=== PATIENT | female | born 1965 | race Caucasian/White ===

== ENCOUNTER 2022-03-26 08:16 | Outpatient (CLI) | payer BC, SELFPAY ==
[2022-03-26 08:35] LABS: Basophils Absolute Auto 0.02 K/uL (0.00-0.30); Basophils Percent Auto 0.4 % (0.0-3.0); Eosinophils Absolute Auto 0.14 K/uL (0.00-0.50); Eosinophils Percent Auto 3.1 % (0.0-7.0); Hematocrit 39.1 % (33.0-51.0); Hemoglobin* 13.1 gm/dL (12.0-16.0); Lymphocytes Absolute Auto 1.65 K/uL (0.90-2.90); Lymphocytes Percent Auto 36.3 % (20-44); Mean Corpuscular HGB Conc 34 gm/dL (32-36); Mean Corpuscular Hemoglobin 32 pg (26-34); Mean Corpuscular Volume 95 fL (80-100); Monocytes Percent Auto 8.8 % (0.0-11.0); Neutrophils Absolute Auto 2.34 K/uL (1.7-7.0); Neutrophils Percent Auto 51.4 % (42.0-72.0); Platelet Count* 236 K/uL (140-440); RDW Coefficient of Variation % 12.8 % (11.5-15.5); Red Blood Count 4.13 m/uL (4.00-5.20); White Blood Count* 4.55 K/uL (4.50-11.00)
[2022-03-26 08:53] LABS: Slide Review Reflex No
[2022-03-26 09:27] LABS: Albumin* 4.1 g/dL (3.3-5.0); Chloride* 107 mmol/L (96-114); Sodium* 140 mmol/L (135-149)
[2022-03-26 09:30] LABS: Alkaline Phosphatase* 72 U/L (40-150); Aspartate Amino Transferase* 24 U/L (12-35); Bilirubin Total* 0.5 mg/dL (0.1-1.5); Blood Urea Nitrogen* 10 mg/dL (7-30); Carbon Dioxide* 26 mmol/L (20-32); Creatinine* 0.5 mg/dL (0.5-1.5); Estimated Glomerular Filt Rate 110.01; Total Protein* 6.3 g/dL (6.0-8.3)
[2022-03-26 09:31] LABS: Alanine Aminotransferase* 20 U/L (4-35); Calcium* 9.2 mg/dL (8.4-10.6); Glucose* 103 mg/dL (60-115)
== END 2022-03-26 08:17 | disposition home or self-care (01) ==
PROVIDERS: PCP Family Medicine; Visit Provider Internal Medicine Hematology & Oncology
DX: C50.412 Malignant neoplasm of upper-outer quadrant of left female breast (principal); R91.8 Other nonspecific abnormal finding of lung field; N20.0 Calculus of kidney; M79.3 Panniculitis, unspecified
CPT/HCPCS: 36415; 71260; 74177; 80053; 85025; Q9967

== ENCOUNTER 2022-08-27 08:03 | Outpatient (CLI) | payer BC, SELFPAY ==
--- NOTE | 2022-08-27 09:00 | CRLHL7_ITS ---
For Patients: As a result of the Century Cures Act, medical imaging exams and procedure reports are released immediately into your electronic medical record. You may view this report before your referring provider. If you have questions, please contact your health care provider. Indication: F/U LEFT BREAST CANCER. LUMP FELT IN LEFT Supra clavicle AND ARM PIT AREA ON PHYSICAL EXAM. Technique: Postcontrast CT chest, abdomen and pelvis. 83 cc Isovue 370 intravenous contrast. Oral water. Please note that all CT scans at this facility use dose modulation, iterative reconstruction, and/or weight-based dosing when appropriate to reduce radiation dose to as low as reasonably achievable. Comparison: 03/26/2022 Findings: In the chest, postoperative changes of left mastectomy and left axillary lymph node dissection noted. There is a stable subcentimeter left axillary lymph node. No suspicious left axillary lymph nodes. No adenopathy at the thoracic inlet. Stable appearance of the thyroid. Mild residual thymic tissue. No mediastinal and hilar adenopathy. Stable 5 millimeter nodule left lower lobe, 3/70. Stable right middle lobe nodule measuring 5 millimeters, 3/60. Dependent areas of scarring. No pleural effusion. No pneumothorax. No fracture. In the abdomen, there is no intrahepatic mass. The gallbladder is normal. No calcified gallstones. No biliary obstruction. Normal spleen. Normal pancreas. Adrenal glands normal. Stable nonobstructing stone within the left kidney measuring 1 cm. Stable small renal cysts. No hydronephrosis. Ureters are normal. Stable mild chronic mesenteric panniculitis. No suspicious intra-abdominal lymph nodes. In the pelvis, the bladder is normal. Normal adnexa and uterus. No bowel obstruction. Appendix normal. No pelvic or inguinal adenopathy. Degenerative changes. Impression: Stable exam. No evidence of pathology within the left axilla or left supraclavicular regions. Stable left lower lobe nodule and right middle lobe nodule measuring 5 millimeters each. No new pulmonary nodule. Stable nonobstructing stone left kidney. Please note that all CT scans at this facility use dose modulation, iterative reconstruction, and/or weight-based dosing when appropriate to reduce radiation dose to as low as reasonably achievable. Dictated by Sinan Johnson MD @ 08/27/2022 12:02:31 PM (Electronically Signed)
[2022-08-30 16:44] LABS: 25-Hydroxyvitamin D2 <1.0 ng/mL; 25-Hydroxyvitamin D2,D3 Total 43.2 ng/mL (30.0-80.0); 25-Hydroxyvitamin D3 43.2 ng/mL
== END 2022-08-27 08:04 | disposition home or self-care (01) ==
LOC: CT 08:04
PROVIDERS: PCP Family Medicine; Visit Provider Internal Medicine Hematology & Oncology
DX: C50.412 Malignant neoplasm of upper-outer quadrant of left female breast (principal)
CPT/HCPCS: 36415; 71260; 74177; 82306; Q9967

== ENCOUNTER 2023-07-31 08:40 | Outpatient (CLI) | payer BC, SELFPAY ==
--- NOTE | 2023-07-31 09:00 | CRLHL7_ITS ---
For Patients: As a result of the Century Cures Act, medical imaging exams and procedure reports are released immediately into your electronic medical record. You may view this report before your referring provider. If you have questions, please contact your health care provider. Indication: Malignant Neoplasm Breast Upper Outer Quadrant Technique: CT Chest/Abd/Pelvis W ISOVUE 370 Please note that all CT scans at this facility use dose modulation, iterative reconstruction, and/or weight-based dosing when appropriate to reduce radiation dose to as low as reasonably achievable. Comparison: 08/27/2022 Findings: In the chest, there is a stable subpleural nodule within the right middle lobe measuring 4.4 millimeters, 60. Additional stable nodule within the periphery of the left lower lobe measuring 4 millimeters, . Mild dependent scarring in both lower lobes. Calcified granuloma in the anterior left upper lobe. Visualized thyroid is normal. No adenopathy in the mediastinum or josé miguel. Similar small left axillary lymph nodes. Postop changes of left mastectomy. Right breast tissue appears normal. No fracture. In the abdomen, there is no intrahepatic mass. The gallbladder is normal. Normal adrenal glands. Simple cysts involving the kidneys. Stable ovoid calcification left kidney measuring 9.5 millimeters. Pancreas normal. Spleen is unremarkable. No retroperitoneal adenopathy. A few scattered subcentimeter lymph nodes are noted in the retroperitoneum. No mesenteric adenopathy. In the pelvis, the bladder is within normal limits. No large uterine fibroid. No adnexal mass. The appendix is normal. No bowel obstruction, free air, free fluid or abscess. Normal ureters. Degenerative facet arthropathy lower lumbar spine with grade 1 degenerative anterolisthesis of L4 on L5. No fracture. Anterior spurring L5-S1. Impression: No significant change since the prior study. Stable small bilateral pulmonary nodules and stable subcentimeter retroperitoneal lymph nodes. No suspicious findings. Please note that all CT scans at this facility use dose modulation, iterative reconstruction, and/or weight-based dosing when appropriate to reduce radiation dose to as low as reasonably achievable. Dictated by Sinan Johnson MD @ 08/04/2023 3:37:32 PM (Electronically Signed)
== END 2023-07-31 08:41 | disposition home or self-care (01) ==
LOC: CT 08:44
PROVIDERS: PCP Family Medicine; Visit Provider Nurse Practitioner Family
DX: C50.419 Malignant neoplasm of upper-outer quadrant of unspecified female breast (principal)
CPT/HCPCS: 71260; 74177; Q9967

== ENCOUNTER 2024-08-16 07:45 | Outpatient (CLI) | payer OTHER, SELFPAY ==
--- NOTE | 2024-08-16 08:00 | CRLHL7_ITS ---
For Patients: As a result of the Century Cures Act, medical imaging exams and procedure reports are released immediately into your electronic medical record. You may view this report before your referring provider. If you have questions, please contact your health care provider. INDICATION: MALIGNANT NEOPLASM OF BREAST TECHNIQUE: CT chest, abdomen and pelvis acquired 83 milliliters Isovue 370 contrast. COMPARISON: July 2023 and 2021 FINDINGS: CHEST: Lungs and Airways: Dependent subsegmental atelectasis. Stable left lower lobe and middle lobe subpleural indeterminate pulmonary nodules measuring 4 millimeters. No new suspicious pulmonary nodules. No mass or consolidation. No endoluminal lesion. Heart and Mediastinum: Tiny right thyroid nodule. No axillary or supraclavicular lymphadenopathy. No mediastinal, hilar or retrocrural lymphadenopathy. Normal heart size. Normal caliber aorta. Pleura: The pleural spaces are normal. ABDOMEN: Liver: Normal enhancement. No focal suspicious hepatic lesions. Gallbladder and biliary: Normal gallbladder without radiopaque stone. Normal caliber bile ducts. Spleen: Normal size and enhancement. Pancreas: Normal enhancement without peripancreatic inflammatory changes or ductal dilatation. Adrenal glands: Normal adrenal glands. Kidneys and ureters: Normal enhancement. Nonobstructing left-sided renal stone. Renal cysts. Subcentimeter hypodensities are too small to characterize however statistically represent cysts. GI tract: The stomach is relatively decompressed. Normal caliber small and large bowel loops. Normal appendix. Vascular structures: Normal caliber abdominal aorta. Lymph nodes: No lymphadenopathy in the abdomen or pelvis by size criteria. Peritoneum: No free air, free fluid, or focal drainable fluid collection. PELVIS: Genitourinary system: Urinary bladder is relatively decompressed. Age-appropriate uterus. SKELETAL STRUCTURES AND SOFT TISSUES: Changes of left-sided mastectomy. Lumbar spondylosis. IMPRESSION: No discrete metastatic disease within the chest, abdomen, or pelvis. Please note that all CT scans at this facility use dose modulation, iterative reconstruction, and/or weight-based dosing when appropriate to reduce radiation dose to as low as reasonably achievable. Dictated by Sinan Waldrop MD @ 08/16/2024 2:38:48 PM (Electronically Signed)
== END 2024-08-16 07:46 | disposition home or self-care (01) ==
PROVIDERS: PCP Family Medicine; Visit Provider Nurse Practitioner Family
DX: C50.412 Malignant neoplasm of upper-outer quadrant of left female breast (principal)
CPT/HCPCS: 71260; 74177; Q9967

== ENCOUNTER 2025-04-23 15:05 | Emergency (ER) | payer OTHER, SELFPAY ==
[2025-04-23] VITALS (28 sets, daily range): BP systolic 120–184; BP diastolic 65–121; PULSE 81–113; RESP 18; TEMP 37.1; O2SAT 93–97; BMI 26.4
--- OUTSIDE RECORDS SUMMARY | 2025-04-23 15:06 | XMS_ITS | CCD ---
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
--- OUTSIDE RECORDS SUMMARY | 2025-04-23 15:06 | XMS_ITS | Clinical Summary ---
Author Organization [employer] [facility] Address [address] [place] [address] Care Team Providers Care Manufacturing Plant Technician Name Role Phone Gamaliel Sierra MD Primary Care Provider [phone] Social History Tobacco Use Types Packs/Day Years Used Date Smoking Tobacco: Never Assessed Comments Unknown Sex and Gender Information Value Date Recorded Sex Assigned at Not on file Legal Sex Female 7:24 AM LEARNING AND DEVELOPMENT OFFICER Gender Identity Not on file Sexual Orientation Not on file Plan of Treatment Health Maintenance Due Date Last Done Comments Tetanus booster 1977 Depression screening for age 12+ 1978 HIV for age 15-65 1981 BMI (ht and wt on same day) for age 18+ 01/12/1984 Hepatitis C screening for age 18-79 01/12/1984 Hepatitis B series for 19+ ( 1 of 3 - 19+ 3-dose series) 1985 Colonoscopy through age 75 2011 Lipids for age 45-75 2011 Mammogram for age 45-75 2011 Pneumococcal series for age 50+ (1 of 1 - PCV) 01/12/2016 Zoster (shingles) series for age 50+ (1 of 2) 01/12/2016 Pap test for age 21-65 11/02/2021 11/02/2018, 2018 COVID-19 vaccine series ( - 2023-25 season) 2024 Influenza Vaccine (#1) 2025 Procedures Procedure Name Priority Date/Time Associated Diagnosis Comments WATER PROJECT MANAGER THIN PREP PAP SCREEN IMAGED Routine 11/02/2018 12:00 PM LEARNING AND DEVELOPMENT OFFICER from Last 3 Months or Most Recently Relevant to Health Maintenance Results * WATER PROJECT MANAGER THIN PREP PAP SCREEN IMAGED (11/02/2018 12:00 PM LEARNING AND DEVELOPMENT OFFICER) Case Report Gynecologic Cytology Report Case: [id number] Authorizing Provider: Jackie Evans PA-C Collected: 11/02/2018 1200 First Screen: Kendy Appiah Received: 11/02/2018 1534 Rescreen: Manjula Milton Specimen: WATER PROJECT MANAGER ThinPrep Vial Screening, Cervical/Vaginal 11/10/2018 2:23 PM LEARNING AND DEVELOPMENT OFFICER [facility] INTERPRETATION/ RESULT NEGATIVE FOR INTRAEPITHELIAL LESION OR MALIGNANCY (NIL) (none) 11/10/2018 2:23 PM LEARNING AND DEVELOPMENT OFFICER [facility] ENTRAL LABORATORY at 1423 LEARNING AND DEVELOPMENT OFFICER SPECIMEN ADEQUACY Satisfactory for evaluation Endocervical component present 11/10/2018 2:23 PM LEARNING AND DEVELOPMENT OFFICER [facility] LABORAT[facility] ENTRAL LABORATORY HPV REQUEST HPV and PAP 11/10/2018 2:23 PM LEARNING AND DEVELOPMENT OFFICER [facility] ENTRAL LABORATORY Last Pap Date 07/15/2008 11/10/2018 2:23 PM LEARNING AND DEVELOPMENT OFFICER [facility] ENTRAL LABORATORY Last Pap Result NIL 9 2:23 PM LEARNING AND DEVELOPMENT OFFICER [facility] ENTRAL LABORATORY Menstrual Status 11/10/2018 2:23 PM LEARNING AND DEVELOPMENT OFFICER [facility] ENTRAL LABORATORY Comment:Menopause Automated Review Successful 11/10/2018 2:23 PM LEARNING AND DEVELOPMENT OFFICER [facility] ENTRAL LABORATORY Comment:Specimen processed s uccessfully by automated chemistry faculty member device, ThinPrep Imaging System, [employer] ANCILLARY TESTING WATER PROJECT MANAGER HPV Ordered, Please see separate report 11/10/2018 2:23 PM LEARNING AND DEVELOPMENT OFFICER [facility] ENTRAL LABORATORY Note The pap test is a screening technique, not a diagnostic procedure. It is used primarily to screen for squamous cancers and precursor lesions. Published studies have shown that it is subject to both false negative and false positive results. The pap test should not be used as the sole means to diagnose or exclude pre-malignant and malignant lesions. Cytology is screened and interpreted at [facility] - [address], [place] [address] and [facility] - [address]; [place] [address] and [facility] - [address]; [place] [address] and [facility] [address]; [place] [address] 11/10/2018 2:23 PM LEARNING AND DEVELOPMENT OFFICER [facility] LABORATORY-C ENTRAL LABORATORY Other (Cervical/Vagina l) 11/02/2018 12:00 PM LEARNING AND DEVELOPMENT OFFICER 11/02/2018 3:34 PM LEARNING AND DEVELOPMENT OFFICER december Nathan HESTER PATHOLOGY/CYTOLOGY Final R esult [facility] [address] [place] [address], [place] from Last 3 Months or Most Recently Relevant to Health Maintenance Insurance [facility] Care Teams Manufacturing Plant Technician Relationship Specialty Start Date End Date Gamaliel Sierra MD PCP - General Family Practice 10/11/19
--- NOTE | 2025-04-23 16:03 | CRLHL7_ITS ---
For Patients: As a result of the Cures Act, medical imaging exams and procedure reports are released immediately into your electronic medical record. You may view this report before your referring provider. If you have questions, please contact your health care provider. INDICATION: Cough TECHNIQUE: Chest 2 views. COMPARISON: CT chest, abdomen and pelvis on August 16, 2024. FINDINGS: Cardiovascular and mediastinum: Heart size is normal. Unremarkable mediastinum. Lungs and pleural spaces: Lungs are clear. No sign of infiltrate or mass. No sign of pleural effusion. No pneumothorax. Bones and soft tissues: No acute fractures. Mild multilevel degenerative changes of the spine. IMPRESSION: No acute cardiopulmonary process. Dictated by Mady Norwood MD @ 04/23/2025 4:31:56 PM (Electronically Signed)
[2025-04-23 16:15] LABS: Appearance Urine Cloudy (Clear)
--- OUTSIDE RECORDS SUMMARY | 2025-04-23 16:24 | XMS_ITS | CCD ---
Author Name Interface, [id number] lity Address [address] [place] [id number] [facility] Address [facility] [address] [address] Reason for Visit Problems Social History
--- OUTSIDE RECORDS SUMMARY | 2025-04-23 16:24 | XMS_ITS | CCD ---
Author Name Interface, [id number] lity Address [address] [place] [address] [address] [place] [address] [facility] Address [address] [place] [address] Reason for Visit Problems Diagnosis Status Date [...]
[2025-04-23 16:35] LABS: Hematocrit 35.1 % (33.0-51.0); Hemoglobin* 11.8 gm/dL (12.0-16.0); Immature Granulocytes Abs Auto 0.03 K/uL (0.00-0.30); Immature Granulocytes Pct Auto 0.3 %; Mean Corpuscular HGB Conc 34 gm/dL (32-36); Mean Corpuscular Hemoglobin 31 pg (26-34); Mean Corpuscular Volume 91 fL (80-100); RDW Coefficient of Variation % 13.6 % (11.5-15.5); Red Blood Count 3.85 m/uL (4.00-5.20); White Blood Count* 9.45 K/uL (4.50-11.00)
[2025-04-23 16:36] LABS: Lactate* 1.1 mmol/L (0.5-1.9)
[2025-04-23 16:38] LABS: Lymphocytes Absolute Auto 1.20 K/uL (0.90-2.90); Slide Review Reflex No
--- NOTE | 2025-04-23 16:39 | ED_ITS ---
HPI - General Adult General Chief complaint: Fever Stated complaint: Possible Kidney Stone Time Seen by Provider: 04/23/25 15:46 Source: patient Mode of arrival: ambulatory Limitations: no limitations History of Present Illness HPI narrative: 60-year-old female coming in today concerned about a fever. Patient states she has been ill for about 10 days or so. She develops a fever and fatigue for several days, got better for several days. Then on Friday of this week developed left flank pain that lasted just less than 2 days. The flank pain radiated into the abdomen in the into her groin. She did have a fever during this time. The pain g and fever resolved however she did vomit multiple times on and off during the last week. Appetite has been significantly decreased. She states that her urine is darker than usual, no increased urinary frequency or urgency and no dysuria. She denies diarrhea or constipation. She denies any abdominal pain now. She denies chest pain or shortness of breath. Does state that she developed a dry cough about the same time all of her other symptoms started. Coughs not keep her up at night nor cause shortness of breath. She denies headache or neck pain. No skin rashes. No sick contacts that she is aware. Patient currently does not take any medications. Has a history of breast cancer, in remission. Fever returned this morning at 102, fatigue and generalized not feeling well also returned. Related Data Home Medications ?Medication ?Instructions ?Recorded ?Confirmed No Known Home Medications 04/23/25 0806/09 Allergies Allergy/AdvReac Type Severity Reaction Status Date / Time adhesive Allergy Intermediate Rash Verified 04/23/25 17:48 mold Allergy Unknown Verified 04/23/25 17:48 latex Allergy Rash Verified 04/23/25 17:48 ado-trastuzumab emtansine AdvReac Intermediate drastic Verified 04/23/25 17:48 blood count drop mouse protein AdvReac Intermediate drastic Verified 04/23/25 17:48 blood count drop fungi Allergy Uncoded 04/23/25 17:48 Review of Systems Status of ROS: Reports: 10 or more systems reviewed and unremarkable except as noted in History and below [facility] Surgical History Status post left mastectomy ?Z90.12 - Acquired absence of left breast and nipple (ICD-10) Status post delivery (01/14/11) ?Z98.891 - History of uterine scar from previous surgery (ICD-10) History of left breast biopsy (09/2018) ?Z98.890 - Other specified postprocedural states (ICD-10) Family History Maternal Grandmother Stroke Maternal Grandfather Prostate cancer Father Squamous cell carcinoma Social History Narrative: , homemaker, 3 kids nonsmoker rarely consumes alcohol Exam Narrative: Exam Narrative: Well-nourished well-developed patient in no acute distress. Alert and oriented. Answers questions appropriately. Mood and affect are appropriate. Thoughts are goal oriented and rational. No tangential or magical thinking noted. Patient speaks in full sentences without needing to catch her breath. HEENT: Normocephalic atraumatic. Pupils are equally round reactive to light. Extraocular muscles are intact. Conjunctivae are moist without any icterus noted. Dry mucous membranes. Posterior pharynx is normal. Neck is soft without any lymphadenopathy or thyromegaly. No masses are appreciated. Cardiovascular: Heart is tachycardic with regular rhythm, S1 and S2 are present without any murmurs. Lungs: Clear to auscultation bilaterally no wheezes rhonchi or rales are apprec iated. Patient takes deep breaths without any discomfort. Abdomen: Soft and nontender nondistended with normal bowel sounds. Extremities: Bilateral lower extremities are without edema. Skin: Well perfused without any obvious rashes. Const: Vital Signs, click to edit/add: Vital Signs - 24 hr 04/23/25 15:44 04/23/25 17:05 04/23/25 17:33 Temperature 98.8 F Pulse Rate 82 Pulse Rate [Right Pulse Oximeter] 113 H Respiratory Rate 18 Blood Pressure 122/70 Blood Pressure [Ri ght Upper Arm] 120/75 Pulse Oximetry 95 93 Oxygen Delivery Me thod Room Air Room Air 04/23/25 17:34 Temperature Pulse Rate 81 Pulse Rate [Right Pulse Oximeter] Respiratory Rate Blood Pressure Blood Pressure [Ri ght Upper Arm] Pulse Oximetry 93 Oxygen Delivery Me thod Course Course ED Course: 60-year-old presenting with a fever unclear etiology. Differential diagnoses includes UTI, bacteremia, renal stones. UA was grossly abnormal with 3+ protein, 3+ blood, positive nitrites, 3+ leukocyte esterase, 50-100 rbc's and greater than 100 wbc's. Patient received 1 dose of IV Zosyn while she was here. She was also started on 1 L of normal saline. Chest x-ray, read by me does not show any acute pathology. CBC unremarkable. Normal lactate. D-dimer elevated at 5.3. Sodium potassium both low at 131 and 3.0 respectively. LFTs are slightly elevated. CRP markedly elevated at 20, procalcitonin markedly elevated at 34.5. Patient's pulse did come down into the 90s after fluid. However, I cannot definitively rule out PE as her source of fever and fatigue. Therefore at this time will proceed with a chest CT is also an abdominal CT to rule out any stones and hydronephrosis as another potential cause of her fever. Abdominal CT does show hydroureteronephrosis on the left, cluster of stones-2 mm and 4 x [address] unremarkable. I discussed with Dr. Tracy, hospitalist at [facility] who will accept the patient for transfer. Vital Signs Vital signs: Initial Vital Signs Temperature 98.8 F 04/23/25 15:44 Temperature Source Temporal Artery Scan 04/23/25 15:44 Pulse Rate 113 H 04/23/25 15:44 Respiratory Rate 18 04/23/25 15:44 Blood Pressure 120/75 04/23/25 15:44 Blood Pressure Mean 90 04/23/25 15:44 Blood Pressure Position Sitting 04/23/25 15:44 Pulse Oximetry 95 04/23/25 15:44 Oxygen Delivery Method Room Air 04/23/25 15:44 Vital Signs Temperature 98.8 F 04/23/25 15:44 Pulse Rate 113 H 04/23/25 15:44 Respiratory Rate 18 04/23/25 15:44 Blood Pressure 120/75 04/23/25 15:44 Pulse Oximetry 95 04/23/25 15:44 Oxygen Delivery Method Room Air 04/23/25 15:44 Temperature 98.8 F 04/23/25 15:44 Pulse Rate 81 04/23/25 17:34 Respiratory Rate 18 04/23/25 15:44 Blood Pressure 122/70 04/23/25 17:33 Pulse Oximetry 93 04/23/25 17:34 Oxygen Delivery Method Room Air 04/23/25 17:05 Medications Administered Medications: Discontinued Medications Generic Name Dose Route Start Last Admin Trade Name Freq PRN Reason Stop Dose Admin Sodium Chloride 1,000 mls @ 1,000 mls/hr 04/23/25 16:15 04/23/25 19:28 0.9 % Sodium Chloride 1000 Ml IV 04/23/25 17:14 Infused .Q1H TONY Infusion Piperacillin Sod/Tazobactam 100 mls @ 200 mls/hr 04/23/25 16:32 04/23/25 19:28 Sod 3.375 gm/ Sodium Chloride IVPB 04/23/25 16:33 Infused ONCE ONE Infusion Medical Decision Making MDM Narrative Medical decision making narrative: 60-year-old female presenting kidney stones and infection secondary to kidney stones with hydroureteronephrosis. Patient hemodynamically stable after L of fluid, Zosyn on board. Patient will be transferred for further management. Lab Data Lab results reviewed: Yes I reviewed the patient's lab results Labs: Lab Results 04/23/25 04/23/25 Range/Units 16:00 16:25 WBC 9.45 (4.50-11.00) K/uL RBC 3.85 L (4.00-5.20) m/uL Hgb 11.8 L (12.0-16.0) gm/dL Hct 35.1 (33.0-51.0) % MCV 91 (80-100) fL MCH 31 (26-34) pg MCHC 34 (32-36) gm/dL RDW Coeff of Russell 13.6 (11.5-15.5) % Plt Count 226 (140-440) K/uL Neut % (Auto) 78.8 H (42.0-72.0) % Lymph % (Auto) 12.8 L (20-44) % [place] % (Auto) 7.5 (0.0-11.0) % Eos % (Auto) 0.6 (0.0-7.0) % Baso % (Auto) 0.0 (0.0-3.0) % Neut # (Auto) 7.40 H (1.7-7.0) K/uL Lymph # (Auto) 1.20 (0.90-2.90) K/uL [place] # (Auto) 0.70 (0.00-0.90) K/UL Eos # (Auto) 0.06 (0.00-0.50) K/uL Baso # (Auto) 0.00 (0.00-0.30) K/uL Abs Immat Gran (auto) 0.03 (0.00-0.30) K/uL Imm/Tot Granulo (auto) 0.3 % D-Dimer Quant (PE/DVT) 5.31 H (0.00-0.50) ug/ml Sodium 131 L (135-149) mmol/L Potassium 3.0 L (3.6-5.1) mmol/L Chloride 97 (96-114) mmol/L Carbon Dioxide 25 (20-32) mmol/L Anion Gap 9 (7-15) mEq/L BUN 22 (7-30) mg/dL Creatinine 0.9 (0.5-1.5) mg/dL Estimated Creat Clear 70.34 Estimated GFR 74 ml/min Glucose 115 (60-115) mg/dL Lactate 1.1 (0.5-1.9) mmol/L Calcium 8.7 (8.4-10.6) mg/dL Total Bilirubin 0.7 (0.1-1.5) mg/dL Direct Bilirubin 0.5 (0.0-0.5) mg/dL AST 55 H (12-35) U/L ALT 44 H (4-35) U/L Alkaline Phosphatase 216 H (40-150) U/L C-Reactive Protein 20.0 H (0.5-1.0) mg/dL Total Protein 6.6 (6.0-8.3) g/dL Albumin 3.3 (3.3-5.0) g/dL Procalcitonin 34.50 H (<0.50) ng/mL Urine Color Brown A (Yellow) Urine Appearance Cloudy A (Clear) Urine pH 6.0 (5.0-8.5) Ur Specific [place] 1.020 (1.000-1.030) Urine Protein 3+ A (Negative) Urine Glucose (UA) Negative (Negative) Urine Ketones Negative (Negative) Urine Blood 3+ A (Negative) Urine Nitrite Positive A (Negative) Urine Bilirubin Negative (Negative) Urine Urobilinogen 1.0 (0.2-1.0) Ur Leukocyte Esterase 3+ A (Negative) Urine RBC 50-100 A (0-2) Urine WBC >100 A (0-5) Ur Squamous Epith Cells Many A (None-Few) Urine Bacteria Many A (None) SARS-CoV-2 (PCR) Negative SARS-CoV-2 (Negative) Monoscreen Negative (Negative) Influenza Type A (PCR) Negative PCR FLU A (Negative) Influenza Type B (PCR) Negative PCR FLU B (Negative) RSV (PCR) Negative PCR RSV (Negative) Imaging Data Chest x-ray: Attestation: I have reviewed the pertinent imaging results. Radiologist's impression: Chest 2 views. COMPARISON: CT chest, abdomen and pelvis on August 16, 2024. FINDINGS: Cardiovascular and mediastinum: Heart size is normal. Unremarkable mediastinum. Lungs and pleural spaces: Lungs are clear. No sign of infiltrate or mass. No sign of pleural effusion. No pneumothorax. Bones and soft tissues: No acute fractures. Mild multilevel degenerative changes of the spine. IMPRESSION: No acute cardiopulmonary process. CT abdomen: Attestation: I have reviewed the pertinent imaging results. Radiologist's impression: TECHNIQUE: CT abdomen and pelvis without contrast, stone protocol. COMPARISON: Same day chest radiograph. CT chest, abdomen and pelvis on August 16, 2024. FINDINGS: Kidney/ureters/bladder: Left kidney is edematous with moderate to severe left-sided hydroureteronephrosis with small cluster of stones in the left distal ureter measuring 2 mm (2/120) and 5 x 4 mm (2/123). No right-sided hydronephrosis or nephrolithiasis. Liver/gallbladder/bile ducts: The liver is normal in size, shape and attenuation. Gallbladder is normal without visualized stones or inflammation. No biliary dilatation. Spleen/pancreas/adrenal glands: The spleen, adrenal glands and pancreas are within normal limits. GI tract: Nonobstructive bowel. Colonic stool burden is within normal limits. Normal appendix. Aorta: Normal in caliber with minimal scattered atherosclerotic calcification. Abdominal wall/omentum/peritoneum: No free air or significant free fluid. No mass or inflammation. Lymph nodes: No lymphadenopathy by size criteria. Pelvis: Unremarkable pelvis. Lower chest: Trace left pleural effusion. No focal pulmonary consolidation. Heart bases unremarkable. Small hiatal hernia. Bones: No acute fracture. No aggressive appearing lytic or blastic osseous lesion. Moderate degenerative changes at L5-S1. Remainder of the spine demonstrates mild multilevel degenerative changes. IMPRESSION: : 1. Left kidney is edematous with moderate to severe left-sided hydroureteronephrosis with small cluster of stones in the left distal ureter measuring 2 mm and 5 x 4 mm. 2. No right-sided hydronephrosis or nephrolithiasis. 3. Trace left pleural effusion. CT scan - chest: Attestation: I have reviewed the pertinent imaging results. Radiologist's impression: TECHNIQUE: CT chest PE was acquired with 100 cc Omnipaque 350 IV contrast. COMPARISON: Same day CT abdomen and pelvis without contrast. Same day chest radiograph. Chest, abdomen and pelvis on August 16, 2024. FINDINGS: Heart and vasculature: Contrast opacification of the pulmonary arterial tree is adequate. No acute pulmonary embolism to the level of the proximal subsegmental pulmonary arteries.. Heart size is normal. Thoracic aorta and pulmonary artery are normal in caliber. Lungs and pleura: No suspicious nodules or infiltrates. No pleural effusions, pleural thickening, or pneumothorax. Dependent atelectasis and left lower lobe linear atelectasis. Lymph nodes/mediastinum: No mediastinal, hilar, or axillary adenopathy. Chest wall: No masses. Left-sided mastectomy. Upper abdomen: Please see same day CT abdomen and pelvis for additional findings. Bones: No acute fracture. No aggressive appearing lytic or blastic osseous lesion. IMPRESSION: 1. No acute pulmonary embolism to the level of the proximal subsegmental pulmonary arteries. No acute cardiopulmonary process. 2. No pleural effusion bilaterally. Previously described left pleural effusion on same day CT abdomen and pelvis is compatible with atelectasis which is more conspicuous on the contrast-enhanced imaging. 3. Please see same-day CT abdomen and pelvis for additional findings. ECG Data Attestation: I personally reviewed and interpreted this ECG as follows: Discharge Plan Discharge Clinical Impression: Complicated urinary tract infection, Kidney calculi Patient Disposition: [facility] Condition: Stable Prescriptions: No Action No Known Home Medications Stand Alone Forms: [employer] Info Instructions
[2025-04-23 16:47] LABS: Mono Screen* Negative (Negative)
[2025-04-23 16:56] LABS: Albumin* 3.3 g/dL (3.3-5.0); Chloride* 97 mmol/L (96-114)
[2025-04-23 16:57] LABS: Potassium* 3.0 mmol/L (3.6-5.1); Sodium* 131 mmol/L (135-149)
[2025-04-23 16:59] LABS: Blood Urea Nitrogen* 22 mg/dL (7-30); Creatinine* 0.9 mg/dL (0.5-1.5); Est. Creatinine Clearance* 70.34; Estimated Glomerular Filt Rate 74 ml/min
[2025-04-23 17:00] LABS: Alanine Aminotransferase* 44 U/L (4-35); Alkaline Phosphatase* 216 U/L (40-150); Anion Gap 9 mEq/L (7-15); Aspartate Amino Transferase* 55 U/L (12-35); Bilirubin Direct* 0.5 mg/dL (0.0-0.5); Bilirubin Total* 0.7 mg/dL (0.1-1.5); Calcium* 8.7 mg/dL (8.4-10.6); Carbon Dioxide* 25 mmol/L (20-32); Glucose* 115 mg/dL (60-115); Total Protein* 6.6 g/dL (6.0-8.3)
[2025-04-23 17:14] LABS: PCR FLU A Negative PCR FLU A (Negative); PCR FLU B Negative PCR FLU B (Negative); PCR RSV Negative PCR RSV (Negative); SARS PCR* Negative SARS-CoV-2 (Negative)
[2025-04-23 17:17] LABS: D Dimer Quantitative* 5.31 ug/ml (0.00-0.50); Procalcitonin* 34.50 ng/mL (<0.50)
[2025-04-23] MEDS: PIPERACILLIN/TAZOBACTAM 3.375 GM in 0.9 % SODIUM CHLORIDE Mini-bag 100 ML IVPB (17:29)
--- NOTE | 2025-04-23 17:34 | CRLHL7_ITS ---
For Patients: As a result of the Century Cures Act, medical imaging exams and procedure reports are released immediately into your electronic medical record. You may view this report before your referring provider. If you have questions, please contact your health care provider. INDICATION: Fever, cough TECHNIQUE: CT chest PE was acquired with 100 cc Omnipaque 350 IV contrast. COMPARISON: Same day CT abdomen and pelvis without contrast. Same day chest radiograph. Chest, abdomen and pelvis on August 16, 2024. FINDINGS: Heart and vasculature: Contrast opacification of the pulmonary arterial tree is adequate. No acute pulmonary embolism to the level of the proximal subsegmental pulmonary arteries.. Heart size is normal. Thoracic aorta and pulmonary artery are normal in caliber. Lungs and pleura: No suspicious nodules or infiltrates. No pleural effusions, pleural thickening, or pneumothorax. Dependent atelectasis and left lower lobe linear atelectasis. Lymph nodes/mediastinum: No mediastinal, hilar, or axillary adenopathy. Chest wall: No masses. Left-sided mastectomy. Upper abdomen: Please see same day CT abdomen and pelvis for additional findings. Bones: No acute fracture. No aggressive appearing lytic or blastic osseous lesion. IMPRESSION: 1. No acute pulmonary embolism to the level of the proximal subsegmental pulmonary arteries. No acute cardiopulmonary process. 2. No pleural effusion bilaterally. Previously described left pleural effusion on same day CT abdomen and pelvis is compatible with atelectasis which is more conspicuous on the contrast-enhanced imaging. 3. Please see same-day CT abdomen and pelvis for additional findings. Please note that all CT scans at this facility use dose modulation, iterative reconstruction, and/or weight-based dosing when appropriate to reduce radiation dose to as low as reasonably achievable. Dictated by Mady Norwood MD @ 04/23/2025 7:17:10 PM (Electronically Signed)
--- NOTE | 2025-04-23 17:37 | CRLHL7_ITS ---
For Patients: As a result of the Century Cures Act, medical imaging exams and procedure reports are released immediately into your electronic medical record. You may view this report before your referring provider. If you have questions, please contact your health care provider. INDICATION: Flank pain, kidney stone suspected. TECHNIQUE: CT abdomen and pelvis without contrast, stone protocol. COMPARISON: Same day chest radiograph. CT chest, abdomen and pelvis on August 16, 2024. FINDINGS: Kidney/ureters/bladder: Left kidney is edematous with moderate to severe left-sided hydroureteronephrosis with small cluster of stones in the left distal ureter measuring 2 mm (2/120) and 5 x 4 mm (2/123). No right-sided hydronephrosis or nephrolithiasis. Liver/gallbladder/bile ducts: The liver is normal in size, shape and attenuation. Gallbladder is normal without visualized stones or inflammation. No biliary dilatation. Spleen/pancreas/adrenal glands: The spleen, adrenal glands and pancreas are within normal limits. GI tract: Nonobstructive bowel. Colonic stool burden is within normal limits. Normal appendix. Aorta: Normal in caliber with minimal scattered atherosclerotic calcification. Abdominal wall/omentum/peritoneum: No free air or significant free fluid. No mass or inflammation. Lymph nodes: No lymphadenopathy by size criteria. Pelvis: Unremarkable pelvis. Lower chest: Trace left pleural effusion. No focal pulmonary consolidation. Heart bases unremarkable. Small hiatal hernia. Bones: No acute fracture. No aggressive appearing lytic or blastic osseous lesion. Moderate degenerative changes at L5-S1. Remainder of the spine demonstrates mild multilevel degenerative changes. IMPRESSION: : 1. Left kidney is edematous with moderate to severe left-sided hydroureteronephrosis with small cluster of stones in the left distal ureter measuring 2 mm and 5 x 4 mm. 2. No right-sided hydronephrosis or nephrolithiasis. 3. Trace left pleural effusion. Please note that all CT scans at this facility use dose modulation, iterative reconstruction, and/or weight-based dosing when appropriate to reduce radiation dose to as low as reasonably achievable. Dictated by Mady Norwood MD @ 04/23/2025 6:53:53 PM (Electronically Signed)
--- NOTE | 2025-04-25 08:46 | ED_ITS ---
HPI - General Adult General Date Seen: 04/23/25 Chief complaint: Fever Stated complaint: Possible Kidney Stone Time Seen by Provider: 04/23/25 15:46 Source: patient Mode of arrival: ambulatory Limitations: no limitations History of Present Illness HPI narrative: Patient was seen in the ER on 04/23. This is an addendum on 04/25/2025. Urine culture came back growing pansensitive E coli. Patient was started IV Zosyn in the hospital and admitted. Related Data Home Medications ?Medication ?Instructions ?Recorded ?Confirmed No Known Home Medications 04/23/25 08/0 06/09 Allergies Allergy/AdvReac Type Severity Reaction Status Date / Time adhesive Allergy Intermediate Rash Verified 04/23/25 17:48 mold Allergy Unknown Verified 04/23/25 17:48 latex Allergy Rash Verified 04/23/25 17:48 ado-trastuzumab emtansine AdvReac Intermediate drastic Verified 04/23/25 17:48 blood count drop mouse protein AdvReac Intermediate drastic Verified 04/23/25 17:48 blood count drop fungi Allergy Uncoded 04/23/25 17:48 PFSH PFSH Surgical History Status post left mastectomy ?Z90.12 - Acquired absence of left breast and nipple (ICD-10) Status post delivery (01/14/11) ?Z98.891 - History of uterine scar from previous surgery (ICD-10) History of left breast biopsy (09/2018) ?Z98.890 - Other specified postprocedural states (ICD-10) Family History Maternal Grandmother Stroke Maternal Grandfather Prostate cancer Father Squamous cell carcinoma Social History Narrative: , homemaker, 3 kids nonsmoker rarely consumes alcohol Course Vital Signs Vital signs: Initial Vital Signs Temperature 98.8 F 04/23/25 15:44 Temperature Source Temporal Artery Scan 04/23/25 15:44 Pulse Rate 113 H 04/23/25 15:44 Respiratory Rate 18 04/23/25 15:44 Blood Pressure 120/75 04/23/25 15:44 Blood Pressure Mean 90 04/23/25 15:44 Blood Pressure Position Sitting 04/23/25 15:44 Pulse Oximetry 95 04/23/25 15:44 Oxygen Delivery Method Room Air 04/23/25 15:44 Vital Signs Temperature 98.8 F 04/23/25 15:44 Pulse Rate 113 H 04/23/25 15:44 Respiratory Rate 18 04/23/25 15:44 Blood Pressure 120/75 04/23/25 15:44 Pulse Oximetry 95 04/23/25 15:44 Oxygen Delivery Method Room Air 04/23/25 15:44 Temperature 98.8 F 04/23/25 15:44 Pulse Rate 102 H 04/23/25 22:31 Respiratory Rate 18 04/23/25 15:44 Blood Pressure 184/121 H 04/23/25 22:31 Pulse Oximetry 94 04/23/25 22:31 Oxygen Delivery Method Room Air 04/23/25 17:05 Medications Administered Medications: Discontinued Medications Generic Name Dose Route Start Last Admin Trade Name Freq PRN Reason Stop Dose Admin Sodium Chloride 1,000 mls @ 1,000 mls/hr 04/23/25 16:15 04/23/25 19:28 0.9 % Sodium Chloride 1000 Ml IV 04/23/25 17:14 Infused .Q1H TONY Infusion Piperacillin Sod/Tazobactam 100 mls @ 200 mls/hr 04/23/25 16:32 04/23/25 19:28 Sod 3.375 gm/ Sodium Chloride IVPB 04/23/25 16:33 Infused ONCE ONE Infusion Medical Decision Making Lab Data Labs: Lab Results 04/23/25 04/23/25 Range/Units 16:00 16:25 WBC 9.45 (4.50-11.00) K/uL RBC 3.85 L (4.00-5.20) m/uL Hgb 11.8 L (12.0-16.0) gm/dL Hct 35.1 (33.0-51.0) % MCV 91 (80-100) fL MCH 31 (26-34) pg MCHC 34 (32-36) gm/dL RDW Coeff of Russell 13.6 (11.5-15.5) % Plt Count 226 (140-440) K/uL Neut % (Auto) 78.8 H (42.0-72.0) % Lymph % (Auto) 12.8 L (20-44) % [place] % (Auto) 7.5 (0.0-11.0) % Eos % (Auto) 0.6 (0.0-7.0) % Baso % (Auto) 0.0 (0.0-3.0) % Neut # (Auto) 7.40 H (1.7-7.0) K/uL Lymph # (Auto) 1.20 (0.90-2.90) K/uL [place] # (Auto) 0.70 (0.00-0.90) K/UL Eos # (Auto) 0.06 (0.00-0.50) K/uL Baso # (Auto) 0.00 (0.00-0.30) K/uL Abs Immat Gran (auto) 0.03 (0.00-0.30) K/uL Imm/Tot Granulo (auto) 0.3 % D-Dimer Quant (PE/DVT) 5.31 H (0.00-0.50) ug/ml Sodium 131 L (135-149) mmol/L Potassium 3.0 L (3.6-5.1) mmol/L Chloride 97 (96-114) mmol/L Carbon Dioxide 25 (20-32) mmol/L Anion Gap 9 (7-15) mEq/L BUN 22 (7-30) mg/dL Creatinine 0.9 (0.5-1.5) mg/dL Estimated Creat Clear 70.34 Estimated GFR 74 ml/min Glucose 115 (60-115) mg/dL Lactate 1.1 (0.5-1.9) mmol/L Calcium 8.7 (8.4-10.6) mg/dL Total Bilirubin 0.7 (0.1-1.5) mg/dL Direct Bilirubin 0.5 (0.0-0.5) mg/dL AST 55 H (12-35) U/L ALT 44 H (4-35) U/L Alkaline Phosphatase 216 H (40-150) U/L C-Reactive Protein 20.0 H (0.5-1.0) mg/dL Total Protein 6.6 (6.0-8.3) g/dL Albumin 3.3 (3.3-5.0) g/dL Procalcitonin 34.50 H (<0.50) ng/mL Urine Color Brown A (Yellow) Urine Appearance Cloudy A (Clear) Urine pH 6.0 (5.0-8.5) Ur Specific [place] 1.020 (1.000-1.030) Urine Protein 3+ A (Negative) Urine Glucose (UA) Negative (Negative) Urine Ketones Negative (Negative) Urine Blood 3+ A (Negative) Urine Nitrite Positive A (Negative) Urine Bilirubin Negative (Negative) Urine Urobilinogen 1.0 (0.2-1.0) Ur Leukocyte Esterase 3+ A (Negative) Urine RBC 50-100 A (0-2) Urine WBC >100 A (0-5) Ur Squamous Epith Cells Many A (None-Few) Urine Bacteria Many A (None) SARS-CoV-2 (PCR) Negative SARS-CoV-2 (Negative) Monoscreen Negative (Negative) Influenza Type A (PCR) Negative PCR FLU A (Negative) Influenza Type B (PCR) Negative PCR FLU B (Negative) RSV (PCR) Negative PCR RSV (Negative) Discharge Plan Discharge Clinical Impression: Complicated urinary tract infection, Kidney calculi Patient Disposition: Xfer [facility] Discharge Location: [facility] Condition: Stable Prescriptions: No Action No Known Home Medications Stand Alone Forms: [employer] Info Instructions
== END 2025-04-23 23:35 | disposition short-term general hospital (02) ==
PROVIDERS: Emergency Provider Family Medicine; PCP Family Medicine
DX: N39.0 Urinary tract infection, site not specified (principal); N20.0 Calculus of kidney
CPT/HCPCS: 36415; 71046; 71275; 74176; 80048; 80076; 81001; 83605; 84145; 85025; 85379; 86140; 86308; 87040; 87086; 87631; 96365; 99281; 99285; J2543; J7030; Q9967

== ENCOUNTER 2025-04-23 23:24 | Outpatient (CLI) | payer OTHER, SELFPAY | END 2025-04-23 23:25 | disposition home or self-care (01) | PROVIDERS: PCP Family Medicine; Visit Provider Family Medicine | DX: N20.0 Calculus of kidney (principal); N39.0 Urinary tract infection, site not specified | CPT/HCPCS: A0425; A0429 ==

== ENCOUNTER 2025-05-05 11:36 | Outpatient (CLI) | payer OTHER, SELFPAY | END 2025-05-05 11:37 | disposition home or self-care (01) | LOC: NFLDREF 05-10 13:31 | PROVIDERS: PCP Family Medicine; Referring Provider Family Medicine; Visit Provider Family Medicine | DX: N39.0 Urinary tract infection, site not specified (principal) | CPT/HCPCS: 87086 ==

== ENCOUNTER 2025-05-18 13:17 | Outpatient (CLI) | payer OTHER, SELFPAY | END 2025-05-18 13:18 | disposition home or self-care (01) | LOC: LKVREF 13:19 | PROVIDERS: PCP Family Medicine; Visit Provider Family Medicine | DX: N39.0 Urinary tract infection, site not specified (principal); N20.0 Calculus of kidney | CPT/HCPCS: 87086 ==

== ENCOUNTER 2025-06-30 07:30 | Outpatient (RCR) | payer OTHER, SELFPAY | END 2025-06-30 10:56 | disposition home or self-care (01) | PROVIDERS: PCP Family Medicine; Visit Provider Nurse Practitioner Family | DX: I97.2 Postmastectomy lymphedema syndrome (principal); C50.412 Malignant neoplasm of upper-outer quadrant of left female breast; Z51.89 Encounter for other specified aftercare | CPT/HCPCS: 97110; 97140; 97165; 97530; 97535; X5282 ==